=== PATIENT | female | born 1970 | race Caucasian/White ===

== ENCOUNTER 2024-06-30 10:31 | Outpatient (RCR) | payer SELFPAY | END 2024-07-19 23:59 | LOC: NS 10:31 | PROVIDERS: PCP Family Medicine; Referring Provider Student in an Organized Health Care Education/Training Program; Visit Provider Student in an Organized Health Care Education/Training Program | DX: Z71.3 Dietary counseling and surveillance (principal); M17.11 Unilateral primary osteoarthritis, right knee; E66.9 Obesity, unspecified; Z68.43 Body mass index [BMI] 50.0-59.9, adult | CPT/HCPCS: 97802 ==

== ENCOUNTER 2024-08-25 14:44 | Outpatient (RCR) | payer SELFPAY | END 2024-09-18 23:59 | LOC: NS 14:44 | PROVIDERS: PCP Family Medicine; Referring Provider Student in an Organized Health Care Education/Training Program; Visit Provider Student in an Organized Health Care Education/Training Program | DX: Z71.3 Dietary counseling and surveillance (principal); M17.11 Unilateral primary osteoarthritis, right knee; E66.9 Obesity, unspecified; Z68.43 Body mass index [BMI] 50.0-59.9, adult | CPT/HCPCS: 97803 ==

== ENCOUNTER 2024-11-17 14:24 | Outpatient (RCR) | payer SELFPAY | END 2024-11-19 23:59 | LOC: NS 14:24 | PROVIDERS: PCP Family Medicine; Referring Provider Student in an Organized Health Care Education/Training Program; Visit Provider Student in an Organized Health Care Education/Training Program | DX: Z71.3 Dietary counseling and surveillance (principal); E66.9 Obesity, unspecified; M17.11 Unilateral primary osteoarthritis, right knee; Z68.43 Body mass index [BMI] 50.0-59.9, adult | CPT/HCPCS: 97803 ==